=== PATIENT | female | born 1985 | race Caucasian/White ===

== ENCOUNTER 2017-05-04 21:57 | Emergency (ER) | payer MEDICAID ==
[~2017-05-04] VITALS: Ht 167.6 cm; Wt 79.4 kg
[2017-05-04 22:05] VITALS: BP_SYST 133
[2017-05-04 22:40] VITALS: BP_SYST 124
== END 2017-05-04 22:40 | disposition home or self-care (01) ==
LOC: SED 21:57
DX: T78.40XA Allergy, unspecified, initial encounter (principal); R06.02 Shortness of breath; R11.0 Nausea; R20.2 Paresthesia of skin; X58.XXXA Exposure to other specified factors, initial encounter
CPT/HCPCS: 99282